=== PATIENT | female | born 1985 | race African-American/Black ===

== ENCOUNTER 2021-05-31 09:41 | Emergency (ER) | payer MEDICARE, MEDICAID | END 2021-05-31 11:19 | disposition home or self-care (01) | LOC: CSHERS 09:41 | DX: T81.30XA Disruption of wound, unspecified, initial encounter (principal); I50.9 Heart failure, unspecified; J45.909 Unspecified asthma, uncomplicated | CPT/HCPCS: 99283 ==

== ENCOUNTER 2021-09-12 23:03 | Emergency (ER) | payer MEDICARE, MEDICAID ==
[2021-09-13 00:14] LABS: #Eosinphils 0.2 10x3/uL (0.0-0.5); #Monocytes 0.7 10x3/uL (0.0-1.1); %Basophils 0.4 % (0.0-2.0); %Eosinophils 2.2 % (0.0-6.0); %Lymphocytes 21.2 % (18.0-47.0); %Monocytes 6.6 % (0.0-10.0); %Neutrophils 68.9 % (40.0-75.0); Hemoglobin 7.8 g/dL (12.0-15.5); Mean Corpuscular HGB CONC 31.3 g/dL (32.0-36.0); Mean Corpuscular Hemoglobin 25.6 pg (27.0-33.0); Mean Corpuscular Volume 81.6 fl (81.6-98.3); Mean Platelet Volume 8.8 fl (7.4-10.4); Platelet Count 276 10x3/uL (150-450); RBC Distribution Width 16.1 % (11.5-14.5); Red Blood Cell (RBC) Count 3.05 10x6/uL (3.90-5.03); White Blood Cell (WBC) Count 10.1 10x3/uL (3.5-10.5)
== END 2021-09-13 01:45 | disposition home or self-care (01) ==
LOC: CSHERS 23:03
DX: O20.0 Threatened abortion (principal); O20.8 Other hemorrhage in early pregnancy; O99.411 Diseases of the circulatory system complicating pregnancy, first trimester; I50.9 Heart failure, unspecified; O99.511 Diseases of the respiratory system complicating pregnancy, first trimester; J45.909 Unspecified asthma, uncomplicated; Z3A.12 12 weeks gestation of pregnancy; Z79.82 Long term (current) use of aspirin; Z79.899 Other long term (current) drug therapy; Z99.2 Dependence on renal dialysis
CPT/HCPCS: 36415; 76856; 84702; 85025; 86900; 86901